=== PATIENT | male | born 1965 | race Caucasian/White ===

== ENCOUNTER 2021-02-12 16:37 | Inpatient (IN) | payer OTHER ==
[~2021-02-12] VITALS: Ht 167.6 cm; Wt 80.7 kg
[2021-02-12] MEDS ORDERED: OMEP40CA97 PO (17:10)
[2021-02-12] MEDS ORDERED: ASPI-1 PO (17:11)
--- NOTE | 2021-02-12 17:36 | REP ---
INDICATION: syncope COMPARISON: None. TECHNIQUE: Portable AP view of the chest FINDINGS: The mediastinum and cardiac silhouette are within normal limits for portable technique. The lung barry are clear without acute consolidation, effusion, or pneumothorax. Skeletal structures are intact. IMPRESSION: No acute cardiopulmonary process appreciated. <Electronically signed by Pako Nance > 02/12/21 [id number]
--- NOTE | 2021-02-12 17:49 | REPVR ---
PROCEDURE INFORMATION: Exam: CT Head Without Contrast Exam date and time: 02/12/2021 5:31 PM Age: 55 years old Clinical indication: Syncope and collapse; Additional info: Syncope vs seizure TECHNIQUE: Imaging protocol: Computed tomography of the head without contrast. Radiation optimization: All CT scans at this facility use at least one of these dose optimization techniques: automated exposure control; mA and/or kV adjustment per patient size (includes targeted exams where dose is matched to clinical indication); or iterative reconstruction. COMPARISON: No relevant prior studies available. FINDINGS: Brain: Normal. No hemorrhage. Unremarkable white matter. No mass effect. Cerebral ventricles: No ventriculomegaly. Paranasal sinuses: Visualized sinuses are unremarkable. No fluid levels. Mastoid air cells: Visualized mastoid air cells are well aerated. Bones/joints: Unremarkable. No acute fracture. Soft tissues: Unremarkable. IMPRESSION: No acute intracranial abnormality. Electronically signed by: Soy Adan On 02/12/2021 17:49:36 PM
[2021-02-12 18:06] LABS: BASO % 0.1 % (0.0-1.0); EOS # 0.1 10^3/uL (0.0-0.5); EOS % 0.9 % (0.0-3.0); HEMATOCRIT 46.3 % (42.0-52.0); HEMOGLOBIN 15.4 g/dl (13.5-17.5); LYMPH # 0.9 10^3/uL (1.5-5.0); LYMPH % 12.6 % (24.0-44.0); MEAN CORPUSCULAR HEMOGLOBIN 28.5 pg (27.0-33.0); MEAN CORPUSCULAR HGB CONC 33.3 g/dl (32.0-36.5); MEAN CORPUSCULAR VOLUME 85.6 fl (80.0-96.0); MONO # 0.5 10^3/uL (0.0-0.8); MONO % 7.1 % (2.0-8.0); NEUTROPHILS # 5.5 10^3/uL (1.5-8.5); PLATELET COUNT, AUTOMATED 281 10^3/uL (150-450); RED BLOOD COUNT 5.41 10^6/uL (4.30-6.10); WHITE BLOOD COUNT 6.9 10^3/uL (4.0-10.0)
[2021-02-12 18:37] LABS: ALBUMIN 4.3 GM/DL (3.2-5.2); ALT/SGPT 42 U/L (12-78); BILIRUBIN,TOTAL 0.4 MG/DL (0.2-1.0); BLOOD UREA NITROGEN 14 MG/DL (7-18); CALCIUM LEVEL 9.2 MG/DL (8.5-10.1); CARBON DIOXIDE LEVEL 27 MEQ/L (21-32); CHLORIDE LEVEL 108 MEQ/L (98-107); CREATININE FOR GFR 0.93 MG/DL (0.70-1.30); GLOMERULAR FILTRATION RATE > 60.0 (>56); GLUCOSE, FASTING 125 MG/DL (70-100); POTASSIUM SERUM 4.1 MEQ/L (3.5-5.1); SODIUM LEVEL 140 MEQ/L (136-145); TOTAL PROTEIN 7.8 GM/DL (6.4-8.2)
[2021-02-12 18:39] LABS: CK-MB VALUE MASS < 1.0 NG/ML (<3.6); CPK CREATINE PHOSPHOKINASE 171 U/L (39-308); MB/CK RELATIVE INDEX 0.58 (< OR =4); TROPONIN I < 0.02 NG/ML (< 0.10)
[2021-02-12 19:25] LABS: RSV AMPLIFICATION NEGATIVE (NEGATIVE)
[2021-02-12] MEDS ORDERED: OMEP-218 PO (19:51)
[2021-02-12] MEDS ORDERED: ATOR40TA75 PO (19:51)
[2021-02-12] MEDS ORDERED: METO25TA4 PO (19:51)
[2021-02-12] MEDS ORDERED: D31000TA2 PO (19:51)
[2021-02-12] MEDS ORDERED: hydrALAZINE 20MG/ML 1ML VIAL (J0360 PER 20MG) IV ONE (20:10)
--- NOTE | 2021-02-12 20:16 | ECGEPIP ---
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
[2021-02-12] MEDS ORDERED: MOM 30ML SUSPENSION UDC PO PRN (20:55)
[2021-02-12] MEDS ORDERED: ACETAMINOPHEN TAB 650MG DOSE (2X325MG) PO PRN (20:55)
[2021-02-12] MEDS ORDERED: hydrALAZINE 20MG/ML 1ML VIAL (J0360 PER 20MG) IV PRN (20:55)
[2021-02-12] MEDS ORDERED: MAALOX 30 ML SUSP *UDC PO PRN (20:55)
--- NOTE | 2021-02-12 21:01 | HPEPDOC ---
[facility] Medical History & Physical Date of Admission Feb 12, 2021 Date of Service: Feb 12, 2021 History and Physical CHIEF COMPLAINT: Presyncope HISTORY OF PRESENT ILLNESS: 55-year-old male history of hypertension, GERD, possible CAD who presents because of a number of episodes of presyncope today at home. He tells me at home during a period of 2 hours there as 3 separate occasions when he felt as though he was about to pass out while seated and felt like his head drifted and vision narrowed but it lasted less than 1 minute and he went back to normal. During these episodes he tells me he doesnt think that he fully lost consciousness. He tells me he had a similar episode approximately 2 months ago and during this time he went to [facility] in [place] and had a cardiac workup done and was told everything was normal and he was sent home. He tells me he has a strong family history of cardiac disease possibly from underlying genetic mutation but he is awaiting appointment to get genetic testing done for himself at the [place]. He came to the hospital because of these episodes today and because he was feeling fatigued afterwards. Currently he tells me he doesnt have any chest pain nor did he have any chest pain any point he also denies any shortness of breath denies fevers or chills. He tells me he feels back to his normal self. I noted his blood pressure be elevated on the monitor and asked about a tells me does not have a history of hypertension and his blood pressures usually normal. He tells me that he thinks griffin had a heart attack when he was 33 years old although he describes a cath procedure and denies having a stent placed. He is uncertain if it was a real heart attack. Hell be admitted to medical service for hypertensive urgency, monitoring on telemetry, and to rule out ACS. PAST MEDICAL/SURGICAL HISTORY: ?CAD says had an CT at age 33, although denies sents, might have been a cath. 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 He tells me he has a cardiac genetic mutation in the family but he has not been tested himself. There is no history of cardiac disease amongst her siblings. ALLERGIES: Please see below. REVIEW OF SYSTEMS: 10 point review of systems complete all negative otherwise stated in HPI HOME MEDICATIONS: Please see below. PHYSICAL EXAMINATION: Constitutional: Awake and alert, in no apparent distress ENT: Sclera are clear. Mucosa is moist. Respiratory: Lungs CTA bilaterally. No respiratory distress. No use of accessory muscles. Cardiovascular: RRR S1 and S2 are normal Gastrointestinal: Abdomen is soft, non distended, non tender, BS present. Musculoskeletal: No lower extremity edema. Neurologic: No focal neurological deficit. Mental Status: A&O x3, normal affect Skin: Warm, dry LABORATORY DATA: See below. IMAGING: See chart MICROBIOLOGY: Please see below. ASSESSMENT/PLAN 55M with PMHx of ?CAD, HLD, who presents with 3 episodes of presyncrope at home. Found to have HTN urgency. Hell be admitted to medical service for hypertensive urgency, monitoring on telemetry, and to rule out ACS. # Pre-syncope: Telemetry monitoring. Obtain orthostats. Less likely seizure given presentation, obtain EEG if episodes reoccur. Head CT reviewed. # HTN urgency: Continue home metoprolol. Add Lisinopril. Hydralazine IV PRB for SBP>160 # Rule out ACS: trend troponins. EKG NSR. #?CAD: Continue ASA, statin, BB. I recommend he follow up with his PCP and possibly get a cardiology referral due to his family history of cardiac disease. Try to obtain [place] records tomorrow if possible for cardiac workup done there. # HLD: Continue home statin # DVT prophylaxis: Fallonnox A [facility] Hospitalist Vital Signs Vital Signs Date Time Temp Pulse Resp B/P (MAP) Pulse Ox O2 Delivery O2 Flow Rate FiO2 02/12/21 18:07 02/12/21 18:06 89 91 93 02/12/21 17:52 95 02/12/21 16:38 97.6 18 Room Air Laboratory Data Labs 24H Laboratory Tests 2 02/12/21 17:54: Immature Granulocyte % (Auto) 0.3, Neutrophils (%) (Auto) 79.0H, Lymphocytes (%) (Auto) 12.6L, Monocytes (%) (Auto) 7.1, Eosinophils (%) (Auto) 0.9, Basophils (%) (Auto) 0.1, Neutrophils # (Auto) 5.5, Lymphocytes # (Auto) 0.9L, Monocytes # (Auto) 0.5, Eosinophils # (Auto) 0.1, Basophils # (Auto) 0.0, Nucleated Red Blood Cells % (auto) 0.0, Anion Gap 5L, Glomerular Filtration Rate > 60.0, Bayron cium Level 9.2, Total Bilirubin 0.4, Aspartate Amino Transf (AST/SGOT) 20, Alanine Aminotransferase (ALT/SGPT) 42, Alkaline Phosphatase 64, Total Creatine Kinase 171, Creatine Kinase MB < 1.0, Creatine Kinase MB Relative Index 0.58, Troponin I < 0.02, Total Protein 7.8, Albumin 4.3, Albumin/Globulin Ratio 1.2 02/12/21 17:57: Coronavirus (COVID-19)(PCR) NEGATIVE, Influenza Type A (RT-PCR) NEGATIVE, Influenza Type B (RT-PCR) NEGATIVE, Respiratory Syncytial Virus (PCR) NEGATIVE 02/12/21 20:03: Troponin I < 0.02 CBC/BMP Laboratory Tests 02/12/21 17:54 Home Medications Scheduled Aspirin (Aspirin) 325 Mg Tablet, 325 MG PO DAILY Atorvastatin Calcium (Atorvastatin Calcium) 40 Mg Tablet, 40 MG PO DAILY Cholecalciferol (Vitamin D3) (Vitamin D3) 1,000 Unit Tablet, 3,000 UNITS PO DAILY Metoprolol Tartrate (Metoprolol Tartrate) 25 Mg Tablet, 25 MG PO BID Omeprazole (Omeprazole) 20 Mg Capsule.dr, 40 MG PO DAILY Allergies Coded Allergies: No Known Allergies (Unverified , 02/12/21) A-FIB/CHADSVASC A-FIB History Current/History of A-Fib/PAF?: No Current PO Anticoag Therapy: No YANN CRAWFORD MD Feb 12, 2021 21:01
[2021-02-12 23:21] VITALS: BP 129/90
[2021-02-13] VITALS (9 sets, daily range): BP systolic 91–129; BP diastolic 59–90
[2021-02-13] MEDS: METOPROLOL TART 25 MG TABLET PO SCH ×2 (01:03→08:36)
[2021-02-13] MEDS: DOCUSATE SODIUM 100MG CAPSULE PO SCH ×2 (01:03→08:35)
[2021-02-13 05:24] LABS: HEMATOCRIT 44.5 % (42.0-52.0); HEMOGLOBIN 14.8 g/dl (13.5-17.5); MEAN CORPUSCULAR HEMOGLOBIN 28.6 pg (27.0-33.0); MEAN CORPUSCULAR HGB CONC 33.3 g/dl (32.0-36.5); MEAN CORPUSCULAR VOLUME 85.9 fl (80.0-96.0); PLATELET COUNT, AUTOMATED 281 10^3/uL (150-450); RED BLOOD COUNT 5.18 10^6/uL (4.30-6.10); WHITE BLOOD COUNT 7.3 10^3/uL (4.0-10.0)
[2021-02-13 05:47] LABS: ALBUMIN 3.7 GM/DL (3.2-5.2); ALT/SGPT 35 U/L (12-78); BILIRUBIN,TOTAL 0.6 MG/DL (0.2-1.0); BLOOD UREA NITROGEN 12 MG/DL (7-18); CARBON DIOXIDE LEVEL 28 MEQ/L (21-32); CHLORIDE LEVEL 107 MEQ/L (98-107); GLOMERULAR FILTRATION RATE > 60.0 (>56); GLUCOSE, FASTING 105 MG/DL (70-100); MAGNESIUM LEVEL 2.1 MG/DL (1.8-2.4); POTASSIUM SERUM 4.4 MEQ/L (3.5-5.1); SODIUM LEVEL 141 MEQ/L (136-145)
[2021-02-13] MEDS ORDERED: ASPIRIN 325 MG TAB PO SCH (09:00)
[2021-02-13] MEDS ORDERED: ATORVASTATIN 20 MG TAB PO SCH (09:00)
[2021-02-13] MEDS ORDERED: OMEPRAZOLE 20 MG CAP PO SCH (09:00)
[2021-02-13] MEDS ORDERED: ENOXAPARIN 40MG/0.4ML SYRINGE (J1650 PER 10MG) SC SCH (09:00)
--- NOTE | 2021-02-13 17:56 | DS.PDOC ---
Discharge Summary General Date of Admission Feb 12, 2021 at 20:54 Date of Discharge 02/13/2021 Attending Physician: SUMEET GALAVIZ MD Discharge Summary PROCEDURES PERFORMED DURING STAY: None. ADMITTING DIAGNOSES: 1. Presyncope 2. Hypertensive urgency. DISCHARGE DIAGNOSES: 1. Presyncope secondary to possible cardiac structural disease. COMPLICATIONS/CHIEF COMPLAINT: Hypertensive Urgency,Syncope. HISTORY OF PRESENT ILLNESS: 55-year-old male history of hypertension, GERD, and possible history of CAD presents due to multiple episodes of presyncope today at home. He told Dr. Red that at home during a period of 2 hours there were 3 separate occasions when he felt as though he was about to pass out while seated and felt like his head drifted and vision narrowed but it lasted less than 1 minute and he went back to normal. During these episodes he told Dr. Red that he doesnt think that he was fully lost consciousness. He reported that he had a similar episode approximately 2 months ago and during this time he went to [facility] in [place] and had a cardiac workup done and was told everything was normal and was sent home. He reported that he has a strong family history of cardiac disease possibly from underlying genetic mutation but he is awaiting appointment to get genetic testing done for himself [place] the [place]. He came to the hospital because of these episodes today and because he was feeling fatigued afterwards. Currently he told Dr. Red that he doesnt have any chest pain nor did he have any chest pain at any point. He also denies any shortness of breath and denies fevers or chills. He stated that he feels back to his normal self. Dr. Red noted that his blood pressure was elevated on the monitor. The patient reported that he does not have a history of hypertension and his blood pressures are usually normal. The patient reported that he possibly had a heart attack when he was 32 years old and he describes a cath procedure and denies having a stent placed. He is uncertain if it was a real heart attack. Hell be admitted to medical service for hypertensive urgency, monitoring on telemetry, and to rule out ACS. HOSPITAL COURSE: The patient denies any fainting episodes since admission. The patient states that he is doing well and has done well throughout the entire hospital stay. He denies feeling nauseous at this time. He denied any heart palpitations, headaches, chest pressure or pain, and any paresthesias throughout the hospital stay. The patient does report a positive family history of cardiac disease. He also states that he had a heart attack when he was 32-year-old and required catheterization for possible embolectomy. He denies having a stent placed at that time. The patient reports that he has significant family history of multiple relatives, requiring heart transplant in their 40s. He reports that one of his cousins who from cardiomyopathy was found to have an LMNA gene mutation. He also reports that he has an appointment with the OR to go over genetic testing on 03/19/2021. There were no overnight telemetry events, TSH level and troponin levels remained normal throughout the patient's hospital stay. Patient's systolic blood pressure remained low, 180 throughout hospital stay, therefore hypertensive urgency was taken off the differential diagnosis list. DISCHARGE MEDICATIONS: Please see below. ALLERGIES: Please see below. PHYSICAL EXAMINATION ON DISCHARGE: VITAL SIGNS: Please see below. GENERAL: Well-appearing, sitting up in his gurney, alert and cooperative on exam. HEENT: No scleral icterus, nares patent, no oropharyngeal erythema, oral mucosa appears dry. CARDIOVASCULAR: Regular rate and rhythm, no murmurs, rubs or gallops. RESPIRATORY: Clear to auscultation bilaterally. ABDOMINAL: No hepatosplenomegaly appreciated. Soft, nontender, nondistended, bowel sounds present. EXTREMITIES: No clubbing, cyanosis, edema appreciated. NEUROLOGICAL: Good muscular tone in upper and lower extremities. PSYCHOLOGICAL: cooperative, alert and oriented 3. LABORATORY DATA: Please see below. IMAGING: Head CT without contrast: 02/12/2021-no acute intracranial abnormality seen. Chest radiograph: 02/12/2021no acute cardiopulmonary process PROGNOSIS: Fair ACTIVITY: As tolerated. DIET: Heart-healthy diet DISCHARGE PLAN: Please follow up at the OR, and with the PCP, cardiology needs to be on patient's health care team. DISPOSITION: Home. DISCHARGE INSTRUCTIONS: 1. Please follow up with PCP within the next week, strongly recommend PCP to refer the patient to cardiology. Also [facility]. 2. Patient has appointment at the OR on 03/19/2021 to workup genetic component to cardiac health. Patient strongly encouraged to keep that appointment and to follow up, considering possible detrimental cardiomyopathy that would require multiple specialist intervention. ITEMS TO FOLLOWUP ON ON OUTPATIENT: 1. Please follow up with PCP within the next week. 2. Please follow through with her appointment at the OR on 03/19/2021. 3. Please continue all home medications, including aspirin, statin, and beta robin. DISCHARGE CONDITION: Stable. TIME SPENT ON DISCHARGE: Greater than 36 minutes. Vital Signs/I&Os Vital Signs Date Time Temp Pulse Resp B/P (MAP) Pulse Ox O2 Delivery O2 Flow Rate FiO2 02/13/21 16:40 97.1 63 18 121/59 (79) 99 Room Air I&O- Last 24 Hours up to 6 AM 02/13/21 06:00 Intake Total 240 ml Balance 240 ml Laboratory Data Labs 24H Laboratory Tests 2 02/12/21 17:54: Immature Granulocyte % (Auto) 0.3, Neutrophils (%) (Auto) 79.0H, Lymphocytes (%) (Auto) 12.6L, Monocytes (%) (Auto) 7.1, Eosinophils (%) (Auto) 0.9, Basophils (%) (Auto) 0.1, Neutrophils # (Auto) 5.5, Lymphocytes # (Auto) 0.9L, Monocytes # (Auto) 0.5, Eosinophils # (Auto) 0.1, Basophils # (Auto) 0.0, Nucleated Red Blood Cells % (auto) 0.0, Anion Gap 5L, Glomerular Filtration Rate > 60.0, Calcium Level 9.2, Total Bilirubin 0.4, Aspartate Amino Transf (AST/SGOT) 20, Alanine Aminotransferase (ALT/SGPT) 42, Alkaline Phosphatase 64, Total Creatine Kinase 171, Creatine Kinase MB < 1.0, Creatine Kinase MB Relative Index 0.58, Troponin I < 0.02, Total Protein 7.8, Albumin 4.3, Albumin/Globulin Ratio 1.2 02/12/21 17:57: Coronavirus (COVID-19)(PCR) NEGATIVE, Influenza Type A (RT-PCR) NEGATIVE, Influenza Type B (RT-PCR) NEGATIVE, Respiratory Syncytial Virus (PCR) NEGATIVE 02/12/21 20:03: Troponin I < 0.02 02/13/21 04:36: Nucleated Red Blood Cells % (auto) 0.0, Anion Gap 6L, Glomerular Filtration Rate > 60.0, Calcium Level 9.0, Total Bilirubin 0.6, Aspartate Amino Transf (A ST/SGOT) 16, Alanine Aminotransferase (ALT/SGPT) 35, Alkaline Phosphatase 50, Total Protein 7.0, Albumin 3.7, Albumin/Globulin Ratio 1.1, Magnesium Level 2.1, Thyroid Stimulating Hormone (TSH) 1.860 CBC/BMP Laboratory Tests 02/12/21 17:54 02/13/21 04:36 Discharge Medications Scheduled Aspirin (Aspirin) 325 Mg Tablet, 325 MG PO DAILY, (Reported) Atorvastatin Calcium (Atorvastatin Calcium) 40 Mg Tablet, 40 MG PO DAILY, (Reported) Cholecalciferol (Vitamin D3) (Vitamin D3) 1,000 Unit Tablet, 3,000 UNITS PO DAILY, (Reported) Metoprolol Tartrate (Metoprolol Tartrate) 25 Mg Tablet, 25 MG PO BID, (Reported) Omeprazole (Omeprazole) 20 Mg Capsule.dr, 40 MG PO DAILY, (Reported) Allergies Coded Allergies: No Known Allergies (Unverified , 02/12/21) Ernesto Amaro DO Feb 13, 2021 17:56
== END 2021-02-13 18:30 | disposition home or self-care (01) | DRG 312 ==
LOC: M ED 16:37 → M ED INP 20:54 → ENRESERV 22:18 → M PCU 23:21
PROVIDERS: ADMIT Family Medicine; ATTEND Internal Medicine
DX: R55 Syncope and collapse (principal); I25.10 Atherosclerotic heart disease of native coronary artery without angina pectoris; K21.9 Gastro-esophageal reflux disease without esophagitis; E78.5 Hyperlipidemia, unspecified; Z20.822 Contact with and (suspected) exposure to COVID-19; Z79.82 Long term (current) use of aspirin; Z79.899 Other long term (current) drug therapy; Z85.49 Personal history of malignant neoplasm of other male genital organs; Z82.41 Family history of sudden cardiac death